=== PATIENT | male | born 1995 | race Caucasian/White ===

== ENCOUNTER 2017-03-11 19:53 | Emergency (ER) | payer BC ==
[2017-03-11 20:02] VITALS: BP 116/77
--- NOTE | 2017-03-11 20:07 | UC ---
Skin Complaint HPI - HPI Summary HPI Summary: 21 YEAR OLD MALE PRESENTS WITH ABSCESS ON HIS CHIN. - History of Current Complaint Chief Complaint: UCSkin Time Seen by Provider: 03/11/17 20:06 Stated Complaint: INGROWN HAIR, FACIAL SWELLING Hx Obtained From: Patient Onset/Duration: Sudden Onset Skin Exposure Onset/Duration: Minutes Ago Timing: Constant Onset Severity: Moderate Current Severity: Moderate Pain Scale Used: 0-10 Numeric - 5 - Allergy/Home Medications Allergies/Adverse Reactions: Allergies Allergy/AdvReac Type Severity Reaction Status Date / Time No Known Allergies Allergy Verified 03/11/17 20:03 Home Medications: Home Medications Amphetamine MIXED SALTS TAB* [Adderall TAB*] 5 mg PO 03/11/17 [History Confirmed 03/11/17] Amphetamine/Dextroamph ER(NF) [Adderal XR (NF)] 1 cap PO DAILY 03/11/17 [ History Confirmed 03/11/17] Multiple Vitamins W/ Minerals [Multivitamin Adults] 1 tab PO DAILY 03/11/17 [ History Confirmed 03/11/17] Review of Systems Constitutional: Negative Skin: Other - abscess on chin Eyes: Negative ENT: Negative Respiratory: Negative Cardiovascular: Negative Gastrointestinal: Negative Genitourinary: Negative Motor: Negative Neurovascular: Negative Musculoskeletal: Negative Neurological: Negative Psychological: Negative All Other Systems Reviewed And Are Negative: Yes PMH/Surg Hx/FS Hx/Imm Hx Previously Healthy: Yes Other History Of: Negative For: HIV, Hepatitis B, Hepatitis C - Surgical History Surgical History: Yes Surgery Procedure, Year, and Place: Right shoulder surgery - Family History Known Family History: Positive: None - Social History Alcohol Use: None Substance Use Type: Marijuana Substance Use Comment - Amount & Last Used: adderal, once a week smokes pot. Smoking Status (MU): Current Every Day Smoker Type: Cigarettes Amount Used/How Often: 1/2-3/4 PPD Have You Smoked in the Last Year: No - Immunization History Vaccination Up to Date: Yes Physical Exam Triage Information Reviewed: Yes Vital Signs: Initial Vital Signs Temp 36.6 C 03/11/17 19:58 Pulse 84 03/11/17 19:58 Resp 16 03/11/17 19:58 BP 116/77 03/11/17 19:58 Pulse Ox 99 03/11/17 19:58 Vital Signs Reviewed: Yes Eye Exam: Normal ENT Exam: Normal Dental Exam: Normal Neck exam: Normal Neck: Positive: 1 Respiratory Exam: Normal Cardiovascular Exam: Normal Abdominal Exam: Normal Musculoskeletal Exam: Normal Neurological Exam: Normal Psychological Exam: Normal Skin: Positive: Other - chin abscess Course/Dx - Diagnoses Provider Diagnoses: chin abscess Discharge - Discharge Plan Condition: Stable Disposition: HOME Prescriptions: Ibuprofen TAB* [Motrin TAB* 800 MG] 800 mg PO Q8H #30 tab Mupirocin 2% OINT* [Bactroban 2 % Oint*] 1 applic TOPICAL BID #1 tube Sulfamethox/Trimethoprim DS* [Bactrim DS 800/160 TAB*] 1 tab PO BID #20 tab Patient Education Materials: Abscess (ED) Referrals: Ela Esteves [Medical Doctor] - Juan Mehat MD [Primary Care Provider] -
== END 2017-03-11 20:10 | disposition home or self-care (01) ==
LOC: UCEAST 19:53
DX: L02.01 Cutaneous abscess of face (principal); F12.90 Cannabis use, unspecified, uncomplicated; F17.210 Nicotine dependence, cigarettes, uncomplicated
CPT/HCPCS: 99212; G0463

== ENCOUNTER 2017-04-21 17:52 | Emergency (ER) | payer BC ==
[2017-04-21 18:12] VITALS: BP 101/60
--- NOTE | 2017-04-21 18:30 | UC ---
General HPI - HPI Summary HPI Summary: 21 y/o male here requesting a refill of his medications for ADHD. He has not been able to take his medications for the last 4 days. He has called his PCP but not able to get a prescription. He has no other complaints. - History of Current Complaint Chief Complaint: UCMedRefill Stated Complaint: MED REFILL Time Seen by Provider: 04/21/17 18:12 - Allergy/Home Medications Allergies/Adverse Reactions: Allergies Allergy/AdvReac Type Severity Reaction Status Date / Time No Known Allergies Allergy Verified 04/21/17 18:08 PMH/Surg Hx/FS Hx/Imm Hx Previously Healthy: Yes Other History Of: Negative For: HIV, Hepatitis B, Hepatitis C - Surgical History Surgical History: Yes Surgery Procedure, Year, and Place: Right shoulder surgery - Family History Known Family History: Positive: None - Social History Alcohol Use: None Substance Use Type: Marijuana Substance Use Comment - Amount & Last Used: adderal, once a week smokes pot. Smoking Status (MU): Current Every Day Smoker Type: Cigarettes Amount Used/How Often: 1/2-3/4 PPD Have You Smoked in the Last Year: No - Immunization History Vaccination Up to Date: Yes Review of Systems Skin: Negative Eyes: Negative ENT: Negative Respiratory: Negative Cardiovascular: Negative Gastrointestinal: Negative Genitourinary: Negative Motor: Negative Neurovascular: Negative Neurological: Negative Psychological: Negative All Other Systems Reviewed And Are Negative: Yes Physical Exam Triage Information Reviewed: Yes Vital Signs: Initial Vital Signs Temp 98.7 F 04/21/17 18:10 Pulse 95 04/21/17 18:10 Resp 16 04/21/17 18:10 BP 101/60 04/21/17 18:10 Pulse Ox 97 04/21/17 18:10 - Additional Comments VITAL SIGNS: Reviewed. GENERAL: Patient is a well developed and nourished malewho is lying comfortable in the stretcher. Patient is not in any acute respiratory distress. HEAD AND FACE: No signs of trauma. No ecchymosis, hematomas or skull depressions. No sinus tenderness. EYES: PERRLA, EOMI x 2, No injected conjunctiva, no nystagmus. EARS: Hearing grossly intact. Ear canals and tympanic membranes are within normal limits. MOUTH: Oropharynx within normal limits. NECK: Supple, trachea is midline, no adenopathy, no JVD, no carotid bruit, no c- spine tenderness, neck with full ROM. CHEST: Symmetric, no tenderness at palpation LUNGS: Clear to auscultation bilaterally. No wheezing or crackles. CVS: Regular rate and rhythm, S1 and S2 present, no murmurs or gallops appreciated. ABDOMEN: Soft, non-tender. No signs of distention. No rebound no guarding, and no masses palpated. Bowel sounds are normal. EXTREMITIES: FROM in all major joints, no edema, no cyanosis or clubbing. NEURO: Alert and oriented x 3. No acute neurological deficits. Speech is normal and follows commands. SKIN: Dry and warm PSYCH: Depressed, quiet, denies any suicidal thoughts or plan. No homicidal thoughts or plan. No signs of psychosis or pressure speech. No tangential speech. Course/Dx - Course Course Of Treatment: I checked the I-stoped and he has not have a prescrition since 03/17/17. I will give a prescription for the next 3 days until he gets a prescrition from his PCP. I discussed all the findings and test results with the patient. Patient was instructed to return to the emergency room immediately if any of the symptoms return or worsens. Plan of care was discussed with the patient and understands and agrees. All questions were answered at patient satisfaction. There were no further complaints or concerns. - Differential Dx - Multi-Symptom Provider Diagnoses: Medication refill Discharge - Discharge Plan Condition: Stable Disposition: HOME Prescriptions: Amphetamine-Dextroamphetamine [Adderall Xr 15 mg] 1 cap PO QAM #5 cap MDD 1 Patient Education Materials: Medicine Refill (ED) Referrals: Juan Mehta MD [Primary Care Provider] -
== END 2017-04-21 18:40 | disposition home or self-care (01) ==
LOC: UCEAST 17:52
DX: F90.9 Attention-deficit hyperactivity disorder, unspecified type (principal); Z76.0 Encounter for issue of repeat prescription; Z72.0 Tobacco use
CPT/HCPCS: 99212; G0463

== ENCOUNTER 2018-06-13 10:23 | Emergency (ER) | payer BC ==
[2018-06-13 10:37] VITALS: BP 115/73
--- NOTE | 2018-06-13 10:37 | UC ---
Skin Complaint HPI - HPI Summary HPI Summary: 23-year-old male comes to clinic today with a chief complaint of swelling in the left armpit. Started about 3 days ago. Pains worse when he touches it or he moves his arm. It's better when he does not raise his arm. No fevers or chills. His been having some dental problems but otherwise he feels WELL. Does have a history of MRSA. - History of Current Complaint Time Seen by Provider: 06/13/18 10:29 Stated Complaint: LUMPS ON ARM PIT - Allergy/Home Medications Allergies/Adverse Reactions: Allergies Allergy/AdvReac Type Severity Reaction Status Date / Time No Known Allergies Allergy Verified 06/13/18 10:38 PMH/Surg Hx/FS Hx/Imm Hx Previously Healthy: Yes - HX MRSA Other Psychological History: ADHD Other History Of: Negative For: HIV, Hepatitis B, Hepatitis C - Surgical History Surgical History: Yes Surgery Procedure, Year, and Place: Right shoulder surgery - Family History Known Family History: Positive: None - Social History Alcohol Use: Occasionally Substance Use Type: Marijuana Substance Use Comment - Amount & Last Used: occassionally Smoking Status (MU): Light Every Day Tobacco Smoker Type: Cigarettes Amount Used/How Often: 1/2-3/4 PPD Have You Smoked in the Last Year: No - Immunization History Vaccination Up to Date: Yes Review of Systems All Other Systems Reviewed And Are Negative: Yes Constitutional: Positive: Negative Skin: Positive: Other - SEE HPI Eyes: Positive: Negative ENT: Positive: Dental Pain Respiratory: Positive: Negative Cardiovascular: Positive: Negative Gastrointestinal: Positive: Negative Motor: Positive: Negative Neurovascular: Positive: Negative Musculoskeletal: Positive: Negative Neurological: Positive: Negative Psychological: Positive: Negative Is Patient Immunocompromised?: No Physical Exam Triage Information Reviewed: Yes Appearance: Well-Appearing, No Pain Distress, Well-Nourished Vital Signs Reviewed: Yes Eye Exam: Normal Eyes: Positive: Conjunctiva Clear ENT: Positive: Pharynx normal Dental: Positive: Gross Decay/Caries @ - RIGHT LOWER, Abscess @ - RT SUB MANDIBULAR SWELLING THAT IS TENDER TO PALPATION Neck: Positive: Supple Respiratory: Positive: Lungs clear, Normal breath sounds, No respiratory distress Cardiovascular: Positive: RRR Musculoskeletal Exam: Normal Musculoskeletal: Positive: Strength Intact, ROM Intact Neurological Exam: Normal Neurological: Positive: Alert, Muscle Tone Normal Psychological Exam: Normal Psychological: Positive: Age Appropriate Behavior Skin: Positive: Other - In the left armpit there is 2 swollen areas each approximately 1 cm in diameter there elevated erythematous and is beginning a etienne on top of each consistent with a skin folliculitis or abscess. Course/Dx - Diagnoses Provider Diagnosis: Skin abscess, Dental abscess Discharge - Sign-Out/Discharge Documenting (check all that apply): Patient Departure All imaging exams completed and their final reports reviewed: No Studies - Discharge Plan Condition: Stable Disposition: HOME Prescriptions: Clindamycin Cap(NF) [Clindamycin Cap 300 mg Cap(NF)] 300 mg PO Q6H #40 cap Patient Education Materials: Dental Abscess (ED), Abscess (ED) Referrals: [facility] [Outside] Additional Instructions: FOLLOW UP WITH YOUR DOCTOR IF NOT COMPLETELY IMPROVED. GET RECHECKED FOR ANY WORSENING OF YOUR CONDITION OR QUESTIONS OR CONCERNS. - Billing Disposition and Condition Condition: STABLE Disposition: Home
== END 2018-06-13 10:40 | disposition home or self-care (01) ==
LOC: UCEAST 10:23
DX: L02.412 Cutaneous abscess of left axilla (principal); K04.7 Periapical abscess without sinus; F90.9 Attention-deficit hyperactivity disorder, unspecified type; F17.210 Nicotine dependence, cigarettes, uncomplicated
CPT/HCPCS: 99212; G0463

== ENCOUNTER 2019-06-11 13:49 | Emergency (ER) | payer BC ==
[2019-06-11 13:56] VITALS: BP 139/84
--- NOTE | 2019-06-11 14:04 | UC ---
Throat Pain/Nasal Tyson HPI - HPI Summary HPI Summary: sore throat cough and sinus congestion worsening over the month - History of Current Complaint Chief Complaint: UCGeneralIllness Stated Complaint: SINUS ISSUE Time Seen by Provider: 06/11/19 14:02 Hx Obtained From: Patient Onset/Duration: Gradual Onset, Lasting Weeks - 4, Still Present Pain Intensity: 5 Pain Scale Used: 0-10 Numeric Cough: Nonproductive Associated Signs & Symptoms: Positive: Sinus Discomfort, Nasal Discharge - Allergies/Home Medications Allergies/Adverse Reactions: Allergies Allergy/AdvReac Type Severity Reaction Status Date / Time No Known Allergies Allergy Verified 06/11/19 13:57 PMH/Surg Hx/FS Hx/Imm Hx Previously Healthy: No Psychological History: Other Other Psychological History: Adhd Other History Of: Negative For: HIV, Hepatitis B, Hepatitis C - Surgical History Surgical History: Yes Surgery Procedure, Year, and Place: Right shoulder surgery - Family History Known Family History: Positive: None - Social History Occupation: Unemployed Lives: With Family Alcohol Use: Occasionally Substance Use Type: Marijuana Substance Use Comment - Amount & Last Used: occassionally Smoking Status (MU): Light Every Day Tobacco Smoker Type: Cigarettes Amount Used/How Often: 1/2-3/4 PPD Have You Smoked in the Last Year: No Cessation Counseling: Counseled 3+Min - 10 Min - Immunization History Vaccination Up to Date: Yes Review of Systems All Other Systems Reviewed And Are Negative: Yes Constitutional: Positive: Chills, Fatigue Skin: Positive: Negative Eyes: Positive: Negative ENT: Positive: Sore Throat, Nasal Discharge, Sinus Congestion Respiratory: Positive: Cough Cardiovascular: Positive: Negative Gastrointestinal: Positive: Negative Genitourinary: Positive: Negative Motor: Positive: Negative Neurovascular: Positive: Negative Musculoskeletal: Positive: Negative Neurological: Positive: Negative Psychological: Positive: Negative Is Patient Immunocompromised?: No Physical Exam Triage Information Reviewed: Yes Appearance: No Pain Distress, Well-Nourished, Ill-Appearing - mild Vital Signs: Initial Vital Signs Temp 99.8 F 06/11/19 13:53 Pulse 108 06/11/19 13:53 Resp 17 06/11/19 13:53 BP 139/84 06/11/19 13:53 Pulse Ox 100 06/11/19 13:53 Vital Signs Reviewed: Yes Eye Exam: Normal Eyes: Positive: Conjunctiva Clear ENT Exam: Normal ENT: Positive: Normal ENT inspection, Hearing grossly normal, Pharynx normal, Nasal congestion, Nasal drainage, TMs normal, Sinus tenderness, Uvula midline. Negative: Tonsillar swelling, Tonsillar exudate, Trismus, Muffled voice, Hoarse voice, Dental tenderness Dental: Positive: Gross Decay/Caries @ Neck exam: Normal Neck: Positive: Supple, Nontender Respiratory Exam: Normal Respiratory: Positive: Chest non-tender, Normal breath sounds, No respiratory distress, No accessory muscle use Cardiovascular Exam: Normal Cardiovascular: Positive: RRR, No Murmur, Pulses Normal, Brisk Capillary Refill Musculoskeletal Exam: Normal Musculoskeletal: Positive: Strength Intact, ROM Intact Neurological Exam: Normal Neurological: Positive: Alert, Muscle Tone Normal Psychological Exam: Normal Skin Exam: Normal Throat Pain/Nasal Course/Dx - Course Course Of Treatment: nicotine cessation encouragement and education, albuterol, zithromax, increase fluids referral for pcp prn - Differential Dx/Diagnosis Provider Diagnosis: Nicotine dependence, Bronchitis Discharge ED - Sign-Out/Discharge Documenting (check all that apply): Patient Departure All imaging exams completed and their final reports reviewed: No Studies - Discharge Plan Condition: Stable Disposition: HOME Prescriptions: Albuterol HFA INHALER* [Ventolin HFA Inhaler*] 2 puff INH Q4H PRN #1 mdi PRN Reason: cough chest congestion Azithromycin TAB* [Zithromax TAB (Z-ALO) 250 mg #6 tabs] 2 tab PO .TODAY, THEN 1 DAILY #1 alo Patient Education Materials: How to Stop Smoking (ED), Acute Bronchitis (ED) Referrals: [facility] [Outside] - If Needed - Billing Disposition and Condition Condition: STABLE Disposition: Home
[2019-06-11 14:23] LABS: Influenza A Molecular NEGATIVE (Negative); Influenza B Molecular NEGATIVE (Negative)
== END 2019-06-11 14:54 | disposition home or self-care (01) ==
LOC: UCEAST 13:49
DX: J40 Bronchitis, not specified as acute or chronic (principal); F17.210 Nicotine dependence, cigarettes, uncomplicated; R09.89 Other specified symptoms and signs involving the circulatory and respiratory systems; R09.81 Nasal congestion
CPT/HCPCS: 87651; 99212; G0463

== ENCOUNTER 2019-06-14 13:47 | Emergency (ER) | payer BC ==
[2019-06-14 14:02] VITALS: BP 137/84
--- NOTE | 2019-06-14 14:24 | UC ---
Throat Pain/Nasal Tyson HPI - HPI Summary HPI Summary: 24-year-old male who was seen 4 days ago and had a negative strep test for his sore throat. He states his throat continues to be painful and he is coughing with postnasal drainage and he wants to be able to stop coughing. He continues to have a sore throat. - History of Current Complaint Chief Complaint: UCGeneralIllness Stated Complaint: COUGH, SORE THROAT Time Seen by Provider: 06/14/19 13:59 Hx Obtained From: Patient Onset/Duration: Gradual Onset Severity: Mild Pain Intensity: 5 Associated Signs & Symptoms: Positive: Nasal Discharge - Allergies/Home Medications Allergies/Adverse Reactions: Allergies Allergy/AdvReac Type Severity Reaction Status Date / Time No Known Allergies Allergy Verified 06/11/19 13:57 PMH/Surg Hx/FS Hx/Imm Hx Previously Healthy: Yes Other History Of: Negative For: HIV, Hepatitis B, Hepatitis C - Surgical History Surgical History: Yes Surgery Procedure, Year, and Place: Right shoulder surgery - Family History Known Family History: Positive: None - Social History Occupation: Unemployed Lives: With Family Alcohol Use: Occasionally Substance Use Type: Marijuana Substance Use Comment - Amount & Last Used: occassionally Smoking Status (MU): Light Every Day Tobacco Smoker Type: Cigarettes Amount Used/How Often: 1/2-3/4 PPD Have You Smoked in the Last Year: No - Immunization History Vaccination Up to Date: Yes Review of Systems All Other Systems Reviewed And Are Negative: Yes ENT: Positive: Sore Throat, Nasal Discharge - Postnasal drainage., Sinus Congestion Respiratory: Positive: Cough - Nonproductive cough. Is Patient Immunocompromised?: No Physical Exam Triage Information Reviewed: Yes Appearance: Well-Appearing, No Pain Distress, Well-Nourished, Thin, Other: - Mildly pale in appearance. Vital Signs: Initial Vital Signs Temp 99.1 F 06/14/19 13:56 Pulse 106 06/14/19 13:56 Resp 20 06/14/19 13:56 BP 137/84 06/14/19 13:56 Pulse Ox 99 06/14/19 13:56 Vital Signs Reviewed: Yes Eyes: Positive: Conjunctiva Clear ENT: Positive: Hearing grossly normal, Pharynx normal - Whitish postnasal drainage, Pharyngeal erythema - Very minimal pharyngeal erythema, Nasal drainage , TMs normal, Uvula midline. Negative: Sinus tenderness Neck: Positive: Supple, Nontender, Enlarged Nodes @ - Bilateral tonsillar lymph node enlargement. Respiratory: Positive: Lungs clear, Normal breath sounds, No respiratory distress, No accessory muscle use Cardiovascular: Positive: No Murmur, Pulses Normal, Brisk Capillary Refill, Tachycardia Musculoskeletal Exam: Normal Neurological Exam: Normal Psychological Exam: Normal Skin Exam: Normal Throat Pain/Nasal Course/Dx - Course Course Of Treatment: At this point in time I advised patient that he needs to continue his Zithromax , I'm going to given Magic mouthwash for his sore throat. I don't feel he has a sinus infection at this point in time however he does have a lot of sinus congestion and he is to follow up at the critical access hospital or his primary care provider on Wednesday if no improvement and go to the ER for any worsening symptoms coming into the . Patient and his mother agreeable to this plan of action. I'm also giving the patient a prescription for benzonatate for his cough - Differential Dx/Diagnosis Provider Diagnosis: Pharyngitis, URI (upper respiratory infection) Discharge ED - Sign-Out/Discharge Documenting (check all that apply): Patient Departure All imaging exams completed and their final reports reviewed: No Studies - Discharge Plan Condition: Good Disposition: HOME Prescriptions: Benzonatate CAP* [Tessalon 100 MG CAP*] 100 mg PO TID PRN #21 cap PRN Reason: Cough Magic Mouth Was-ELVER/MAAL/LIDO* 5 ml SWISH SPIT QID PRN #100 ml PRN Reason: Pain - Mild Patient Education Materials: Pharyngitis (ED) Referrals: [facility] [Outside] No Primary Care Phys,NOPCP [Primary Care Provider] - Additional Instructions: Increase fluids, may continue your [id number] medicine as directed, rest, recheck on Wednesday critical access hospital or your primary care provider if no improvement. If you have worsening symptoms coming into the weekend then you can follow-up in the emergency room. Continue your Z-Sukhdeep as directed - Billing Disposition and Condition Condition: GOOD Disposition: Home
== END 2019-06-14 14:30 | disposition home or self-care (01) ==
LOC: UCEAST 13:47
DX: J02.9 Acute pharyngitis, unspecified (principal); F17.210 Nicotine dependence, cigarettes, uncomplicated
CPT/HCPCS: 99212; G0463